=== PATIENT | female | born 1980 | race Hispanic/Latino ===

== ENCOUNTER 2018-02-27 21:12 | Emergency (ER) | payer BC ==
[2018-02-27 21:23] VITALS: RESP 16; TEMP 98.6
--- NOTE | 2018-02-27 22:24 | ED PDOC ---
HPI: General Adult Time Seen by Provider: 02/27/18 21:27 Chief Complaint (Nursing): Weakness/Neurological Deficit History Per: Patient History/Exam Limitations: no limitations Onset/Duration Of Symptoms: Days Have you had recent travel within the past 21 days to any of the following countries: [place], [place], [place] or [place]?: No Current Symptoms Are (Timing): Still Present Additional Complaint(s): Hx of Chron's Disease (on no meds) presenting with multiple various complaints. Patient states that she just completed a cruise to the [facility], states that every 3 days she was using a fresh scopalamine patch behind her R ear for a total of 7 days while on the ship. She states that she developed lower lip swelling 4 days into the trip as well as a rash in her arms and back that are itching. She also states she had accupuncture done on the ship for R foot pain which she has had for a few weeks. She also states that for the past 2 days she has had issues with her R arm with some numbness, occasional weakness, and occasional cramping. She also states her R eye has been dilated x 1 day and has blurry vision and is seeing spots. She went to an and was given scripts for meclizine and prednisone. She states she suffers with migraines and currently is having a throbbing, nonthundercalp, nonmaximal in onset headache with nausea. No fevers or neck stiffness. No chest pain, shortness of breath. Patient was concerned additionally that her legs are swollen. Patient is concerned that her constellation of symptoms are a stroke. NIHSS Stroke Scale 2 - Date/Time Evaluation Performed When Was NIHSS Performed: Baseline - How Severe is the Stroke Level of Consciousness: 0=Alert LOC to Questions: 0=Both comments correct LOC to commands: 0=Obeys both correctly Best Gaze: 0=Normal Visual: 0=No visual loss Facial: 0=Normal Motor Arm - Left: 0=No drift Motor Arm - Right: 0=No drift Motor Leg - Left: 0=No drift Motor Leg - Right: 0=No drift Limb Ataxia: 0=Absent Sensory: 0=Normal Best Language: 0=No aphasia Dysarthia: 0=Normal articulation Extinction & Inattention (Neglect): 0=Normal, no object Score: 0 Past Medical History Reviewed: Historical Data, Nursing Documentation, Vital Signs Vital Signs: Last Vital Signs Temp 98.6 F 02/27/18 21:17 Pulse 95 H 02/27/18 21:17 Resp 16 02/27/18 21:17 BP 117/83 02/27/18 21:17 Pulse Ox 97 02/27/18 22:30 - Medical History PMH: Crohn's Disease - Family History Family History: States: Unknown Family Hx - Home Medications Home Medications: Ambulatory Orders Medication Instructions Recorded Mesalamine [Pentasa] 4 tab PO DAILY 05/06/15 Tobramycin 0.3% [Tobrex 0.3% Ophth 2 drop OS TID #1 bottle 05/07/15 Soln] - Allergies Allergies/Adverse Reactions: Allergies Allergy/AdvReac Type Severity Reaction Status Date / Time No Known Allergies Allergy Verified 02/27/18 21:15 Review of Systems ROS Statement: Except As Marked, All Systems Reviewed And Found Negative Eyes: Positive for: Vision Change Gastrointestinal: Positive for: Nausea Physical Exam - Reviewed Nursing Documentation Reviewed: Yes Vital Signs Reviewed: Yes - Physical Exam Appears: Positive for: Well, Non-toxic, No Acute Distress Head Exam: Positive for: ATRAUMATIC, NORMAL INSPECTION, NORMOCEPHALIC Skin: Positive for: Normal Color, Warm, Rash (Very scant papular rash to bilateral upper extremities and upper back) Eye Exam: Positive for: EOMI. Negative for: PERRL (R sided pupil dilation > L, 5-6mm), Nystagmus ENT: Positive for: Normal ENT Inspection Neck: Positive for: Normal, Painless ROM Cardiovascular/Chest: Positive for: Regular Rate, Rhythm Respiratory: Positive for: CNT, Normal Breath Sounds Gastrointestinal/Abdominal: Positive for: Normal Exam, Soft Back: Positive for: Normal Inspection Extremity: Positive for: Normal ROM, Pedal Edema (non-pitting bilaterally) Neurologic/Psych: Positive for: Alert, technical instructor course developer II-XII, Oriented, Mood/Affect (wnl), Cerebellar Tests (wnl), Gait (wnl). Negative for: Motor/Sensory Deficits, Aphasia, Facial Droop - Laboratory Results Result Diagrams: 02/27/18 22:40 02/27/18 22:40 - ECG O2 Sat by Pulse Oximetry: 97 Medical Decision Making Medical Decision MakinPM Patient with Chron's presenting with several different complaints -patient is very well appearing, normal vitals, nonfocal exam (minus the pupillary dilitation) -pupilary dilitation likely related to excessive scopalamine use, antihistamine qualities -numbness of R arm likely related to migraine headache -will get head CT, labs, and provide symptomatic relief 1200AM EXAM: CT Head Without Intravenous Contrast CLINICAL HISTORY: 37 years old, female; Signs and symptoms; Weakness, extremity; Right; Additional info: Rue numbness x 2 days. Sent physician doc. TECHNIQUE: Axial computed tomography images of the head/brain without intravenous contrast. All CT scans at this facility use at least one of these dose optimization techniques: automated exposure control; mA and/or kV adjustment per patient size (includes targeted exams where dose is matched to clinical indication); or iterative reconstruction. Coronal and sagittal reformatted images were created and reviewed. COMPARISON: CT - HEAD W/O CONTRAST 05/07/2015 1:07 AM FINDINGS: Brain: There is no evidence of intracranial hemorrhage. The cortical/white matter interfaces are preserved throughout the brain. There is no intracranial mass or mass effect. Midline developmental anatomy is within normal limits. No cerebellar tonsillar ectopia. Midline shift: No midline shift. Ventricles: The ventricular system is normal in size and distribution. Bones/joints: The calvarium and skull base are intact. No fracture. Soft tissues: Normal. Sinuses: Trace mucosal thickening of the ethmoid sinuses, likely within normal limits. Mastoid air cells: The mastoid air cells are clear. IMPRESSION: No acute intracranial abnormality. Thank you for allowing us to participate in the care of your patient. Dictated and Authenticated by: Erik Hoover DO 02/27/2018 11:26 PM Eastern Time ([place] & [place]) Patient given results, re-evaluated, well appearing, feeling better. Advised to followup with PMD and neurology as warranted. Disposition - Clinical Impression Clinical Impression: Medication side effect, Arm paresthesia, right - Patient ED Disposition Is Patient to be Admitted: No - Disposition Referrals: Meg Davis MD [Medical Doctor] - Disposition: Routine/Home Disposition Time: 00:05 Condition: IMPROVED Instructions: Side Effects From Medicines, Paresthesias (DC) Forms: [employer] ([place])
[2018-02-27 22:53] LABS: BASO # 0.1 K/uL (0.0-0.2); BASO % 0.5 % (0.0-2.0); EOS # 0.3 K/uL (0.0-0.7); EOS % 2.8 % (0.0-4.0); HEMOGLOBIN 12.7 g/dL (12.0-16.0); LYMPH # 3.3 K/uL (1.0-4.3); LYMPH % 33.7 % (20.0-40.0); MEAN CELL VOLUME 84.4 fl (81.0-99.0); MEAN CORPUSCULAR HEMOGLOBIN 28.2 pg (27.0-31.0); MEAN CORPUSCULAR HGB CONC 33.4 g/dL (33.0-37.0); MEAN PLATELET VOLUME 8.9 fl (7.2-11.7); MONO # 0.7 K/uL (0.0-0.8); MONO % 7.4 % (0.0-10.0); NEUT # 5.5 K/uL (1.8-7.0); NEUT % 55.6 % (50.0-75.0); NRBC % 0.1 % (0.0-0.0); RBC 4.51 Mil/uL (3.80-5.20); RED CELL DISTRIBUTION WIDTH 14.6 % (11.5-14.5); WHITE BLOOD COUNT 9.8 K/uL (4.8-10.8)
[2018-02-27 23:05] LABS: ALB/GLOB RATIO 1.1 (1.0-2.1); ALBUMIN 3.9 g/dL (3.5-5.0); GFR NON-AFRICAN AMERICAN > 60
[2018-02-27 23:17] LABS: ALT/SGPT 39 U/L (9-52); AST/SGOT 33 U/L (14-36); BLOOD UREA NITROGEN 14 mg/dl (7-17)
[2018-02-28 00:33] VITALS: BP 111/71; PULSE 75; O2SAT 95
--- NOTE | 2018-02-28 11:48 | CT ---
Date of service: 02/27/2018 PROCEDURE: CT HEAD WITHOUT CONTRAST. HISTORY: RUE numbness x 2 days COMPARISON: Comparison made with prior CT scan brain 05/07/2015 TECHNIQUE: Axial computed tomography images were obtained through the head/brain without intravenous contrast. Radiation dose: Total exam DLP = 740.84 mGy-cm. This CT exam was performed using one or more of the following dose reduction techniques: Automated exposure control, adjustment of the mA and/or kV according to patient size, and/or use of iterative reconstruction technique. FINDINGS: HEMORRHAGE: No intracranial hemorrhage. BRAIN: No mass effect or edema. No atrophy or chronic microvascular ischemic changes. VENTRICLES: Unremarkable. No hydrocephalus. CALVARIUM: Unremarkable. PARANASAL SINUSES: Unremarkable as visualized. No significant inflammatory changes. MASTOID AIR CELLS: Unremarkable as visualized. No inflammatory changes. OTHER FINDINGS: None. IMPRESSION: No acute intracranial hemorrhage.
== END 2018-02-28 00:25 | disposition home or self-care (01) ==
LOC: H.ER 21:12
DX: R20.2 Paresthesia of skin (principal); K50.90 Crohn's disease, unspecified, without complications
CPT/HCPCS: 70450; 80053; 81025; 83880; 85025; 96374; 96375; 99285; J1885; J2765